=== PATIENT | female | born 1980 | race Caucasian/White ===

== ENCOUNTER 2018-03-26 19:41 | Emergency (ER) | END 2018-03-26 21:20 | disposition home or self-care (01) ==

== ENCOUNTER 2018-05-05 08:06 | Emergency (ER) | END 2018-05-05 10:21 | disposition home or self-care (01) ==

== ENCOUNTER 2018-12-21 05:23 | Emergency (ER) | payer OTHER ==
[~2018-12-21] VITALS: Wt 62.8 kg
[~2018-12-21 05:23] MED LIST: BEN25 PO; EPIN0.3P4 INJ; FAMO-96 PO; NAPR-985 PO; PRED20TA PO; TRAM50TA2 PO
[2018-12-21 05:27] VITALS: BP 138/80; PULSE 74; RESP 18
--- NOTE | 2018-12-21 05:50 | ERD ---
ER Documentation Chief Complaint Chief Complaint VAGINAL DISCOMFORT/ ITCHING X'S 3 HRS HPI This is a 38-year-old female who presents emergency department with complaints of vaginal discomfort/itching for about 3 hours. Stated that she just finished her clindamycin cream last Tuesday for a bacterial vaginosis that was diagnosed and prescribed by her primary care physician. LMP: 11/27/2018. . Denies headache, head injury, loss of consciousness, dizziness, neck pain, neck stiffness, throat pain, difficulty swallowing, difficulty breathing lying flat, shoulder pain, chest pain, back pain, abdominal pain, nausea, vomiting, constipation, diarrhea, or possibility being , loss of bowel and bladder control, trauma, injury, falls, difficulty walking due to pain, numbness or tingling sensation, calf pain, recent travel, recent major surgery in the last 3 weeks, calf pain, recent long travel, recent exposure to any illness, recent antibiotic use in the last 3 months, fever, chills, seizures. Past medical history: Surgical history: x4. Cerclage. Tubal ligation. Social: Denies smoking, use of alcoholic beverages, use of illegal drugs. ROS All systems reviewed and are negative except as per history of present illness. Medications Home Meds Active Scripts Ibuprofen* (Motrin*) 600 Mg Tab, 600 MG PO Q6H PRN for PAIN AND OR ELEVATED TEMP, #30 TAB Prov:SELMA HILL 12/21/18 Miconazole Nitrate (Miconazole 7) 100 Mg Supp.vag, 100 MG VG QHS for 7 Days, SUPP.VAG Prov:SELMA HILL 12/21/18 Cephalexin* (Keflex*) 500 Mg Capsule, 500 MG PO TID for 7 Days, CAP Prov:GEOFFILASELMA BYNUM F 12/21/18 Naproxen* (Naprosyn*) 500 Mg Tablet, 500 MG PO BID PRN for PAIN AND/OR INFLAMMATION, #30 TAB Prov:JAKE SWAN PA-C 05/05/18 Tramadol HCl (Tramadol HCl) 50 Mg Tablet, 50 MG PO Q6 PRN for PAIN, #20 TAB Prov:JAKE SWANC 05/05/18 Epinephrine (Epipen 2-Jose David) 0.3 Mg/0.3 Ml Pen.injctr, 1 EA INJ ONCE PRN for ALLERGIC REACTION, #1 EA Prov:MARYANA MTZ PA-C 03/26/18 Prednisone* (Prednisone*) 20 Mg Tab, 40 MG PO DAILY for 4 Days, TAB Prov:MARYANA MTZ PA-C 03/26/18 Famotidine* (Pepcid*) 20 Mg Tablet, 20 MG PO BID for 4 Days, TAB Prov:MARYANA MTZ PA-C 03/26/18 Diphenhydramine Hcl* (Benadryl*) 25 Mg Cap, 25 MG PO Q6, #30 CAP Prov:MARYANA MTZ PA-C 03/26/18 Reported Medications [None] No Conflict Check 05/07/10 Allergies Allergies: Coded Allergies: metronidazole (Verified Allergy, Unknown, 12/21/18) nitrofurantoin (Verified Allergy, Unknown, 03/26/18) PMhx/Soc History of Surgery: Yes (,Contraceptive Ring,B Tubal Ligation) Anesthesia Reaction: No Hx Neurological Disorder: No Hx Respiratory Disorders: No Hx Cardiac Disorders: No Hx Psychiatric Problems: Yes (Clinical Depression/Anxiety) Hx Miscellaneous Medical Probl: Yes (Vaginosis) Hx Alcohol Use: Yes (SOCIAL) Hx Substance Use: No Hx Tobacco Use: No Physical Exam Vitals Physical Exam Const: No acute distress Head: Atraumatic Eyes: Normal Conjunctiva ENT: Normal External Ears, Nose and Mouth. Neck: Full range of motion. No meningismus. Resp: Clear to auscultation bilaterally Cardio: Regular rate and rhythm, no murmurs Abd: Soft, non tender, non distended. Normal bowel sounds. : Examined with female senior mobile application developer, Maria C EMT. External vaginal area has no vesicular lesions. No bleeding. Has very mild cottage cheese like discharge. Skin: No petechiae or rashes Back: No midline or flank tenderness. No CVA tenderness. Ext: No cyanosis, or edema Neur: Awake and alert Psych: Normal Mood and Affect Results 24 hrs Laboratory Tests Test 12/21/18 06:03 12/21/18 06:10 12/21/18 06:11 Urine Color YELLOW Urine Clarity SLIGHTLY CLOUDY Urine pH 5.0 Urine Specific [place] 1.024 Urine Ketones NEGATIVE mg/dL Urine Nitrite NEGATIVE mg/dL Urine Bilirubin NEGATIVE mg/dL Urine Urobilinogen NEGATIVE mg/dL Urine Leukocyte Esterase 3+ Zoey/ul Urine Microscopic RBC 6 /HPF Urine Microscopic WBC 8 /HPF Urine Squamous Epithelial Cells FEW /HPF Urine Bacteria FEW /HPF Urine Mucus FEW /HPF Urine Hemoglobin 1+ mg/dL Urine Glucose NEGATIVE mg/dL Urine Total Protein NEGATIVE mg/dl Chlamydia trachomatis RNA (TMA) NOT DETECTED Chlamydia/GC Comment SEE NOTE Neisseria gonorrhoeae RNA (TMA) NOT DETECTED Bedside Urine pH (LAB) 5.5 Bedside Urine Protein (LAB) Negative Bedside Urine Glucose (UA) Negative Bedside Urine Ketones (LAB) Negative Bedside Urine Blood 1+ Bedside Urine Nitrite (LAB) Negative Bedside Urine Leukocyte Esterase 1+ (L POC Beta HCG, Qualitative NEGATIVE Current Medications Medications Dose Sig/Paresh Start Time Status Last (Trade) Ordered Route PRN Stop Time Admin Dose Reason Admin Fluconazole 150 mg ONCE ONCE 12/21/18 DC 12/21/18 (Diflucan) PO 06:30 06:43 12/21/18 06:31 Procedures/MDM Diagnostic tests: POC urine : Negative. Urine dipstick: UTI. Gonorrhea and Chlamydia: Sent. Treatment: Fluconazole. Re-evaluation: Denies pain. Differential diagnosis I have low suspicion for herpes, sepsis. Final diagnosis: UTI. Trichomoniasis Prescription: Keflex. Miconazole. Follow-up with PCP in the next 24-48 hours. Follow-up with glass processing worker in the next 24-48 hours. Come back here in the emergency department for any new sympto ms or any worsening symptoms. All questions and concerns were answered. Patient and family members verbalized understanding and agreed with plan of care. Hemodynamically stable on discharge. Departure Diagnosis: Primary Impression: Female genital symptoms Additional Impressions: UTI (urinary tract infection) Vaginitis Condition: Stable Additional Instructions: Follow-up with PCP in the next 24-48 hours. Follow-up with glass processing worker in the next 24-48 hours. Come back here in the emergency department for any new symptoms or any worsening symptoms. SELMA HILL Dec 21, 2018 05:50
[2018-12-21] MEDS ORDERED: FLUCONAZOLE 150 MG TAB PO ONE (06:30)
[2018-12-21] MEDS ORDERED: CEPH-443 PO (06:48)
[2018-12-21] MEDS ORDERED: MICO100S4 VG (06:50)
[2018-12-21] MEDS ORDERED: IBUP-1542 PO (06:50)
== END 2018-12-21 06:58 | disposition home or self-care (01) ==
LOC: FTE 05:23
DX: N39.0 Urinary tract infection, site not specified (principal); N76.0 Acute vaginitis; R10.2 Pelvic and perineal pain
CPT/HCPCS: 81001; 81025; 87086; 87591; Z7502; Z7610; 81003; 99283